=== PATIENT | female | born 1930 | race Caucasian/White ===

== ENCOUNTER → 2017-09-06 | Outpatient (CLI) | payer MEDICARE, OTHER ==
[~2017-09-06] MED LIST: ALENDRONATE SOD70 MG PO; ARICEPT5 MG PO; CITALOPRAM HBR10 MG; CITALOPRAM HBR20 MG PO; CLONIDINE HCL0.1 MG PO; LATANOPROST2.5 ML OP; LEVOTHYROXINE50 MCG PO; LEVOTHYROXINE75 MCG PO; LOVASTATIN20 MG; LOVASTATIN40 MG PO; MELATONIN3 MG PO; MIRAPEX0.25 MG PO; MIRTAZAPINE15 MG PO; MUCINEX DM ER1 EACH PO; MULTIVITAMINS1 EAC8 PO; NORVASC5 MG PO; SYMBICORT 16010.2 GM; TYLENOL EXTRA500 MG PO; TYLENOL WITH C1 EACH PO; VITAMIN D3400 UNI1; XALATAN2.5 ML
--- NOTE | 2017-09-06 15:12 | Diagnostic Imaging Report ---
PROCEDURE: CT CHEST WITHOUT CONTRAST CT scan of the chest WITHOUT intravenous contrast, using standard protocol. TECHNIQUE: The chest was scanned utilizing a multidetector helical scanner from the apex to the level of the adrenal glands. No IV contrast was administered because of referring physician request. Coronal and sagittal multiplanar reformations were obtained. COMPARISON: None. INDICATIONS: ABNORMAL XRAY FINDINGS: Lines/tubes: None. Lungs and Airways: Biapical bullous emphysematous changes. Scattered foci of groundglass opacity with interlobular septal thickening with a peripheral and lower lobe predominance. Associated juxtapleural reticulation in the dependent lower lobes. Pleura: No pleural effusion or pneumothorax. Heart and mediastinum: No ectasia or aneurysmal dilatation of the thoracic aorta. Common origin of the innominate and left common carotid artery from the aortic arch. Pulmonary outflow tract is of normal caliber. Atherosclerotic calcifications of the [place] coronary arteries. No pericardial effusion. Mildly enlarged precarinal lymph node measures 1.4 cm. Calcified subcarinal lymph node measures 1.1 cm short axis. Soft tissues: No focal soft tissue abnormalities. Thyroid gland appears normal. Abdomen: Multiple hypoattenuating lesions within the partially visualized liver which have average internal attenuation less than 20 Hounsfield units compatible with simple cysts. The largest lesion is partially visualized in segment 3 and measures 5.3 cm. Visualized portions of the spleen, adrenals, and left kidney are unremarkable. Bones: No osseous destructive lesions. Diffuse osteopenia with exaggerated thoracic kyphosis. Mild degenerative disc changes of the lower cervical spine. IMPRESSION: Biapical emphysematous changes with peripheral and basal predominant reticulation and groundglass opacity likely reflective of age-related fibrotic changes. Superimposed subsegmental atelectasis in the dependent lower lobes is suspected. Mediastinal lymphadenopathy is nonspecific though likely reactive. Atherosclerotic vascular disease. Dictated by: Unruly Begum M.D. on 09/06/2017 at 13:16 Electronically approved by: Unruly Begum M.D. on 09/06/2017 at 13:16
== END ==
LOC: CT 11:37
PROVIDERS: ATTEND Internal Medicine
DX: R91.8 Other nonspecific abnormal finding of lung field (principal)
CPT/HCPCS: 71250